=== PATIENT | male | born 1995 | race Caucasian/White ===

== ENCOUNTER 2020-03-27 08:08 | Emergency (ER) | payer SELFPAY ==
[2020-03-27] MEDS ORDERED: BENADRYL 25MG C25 MG PO (12:43)
[2020-03-27] MEDS ORDERED: PREDNISONE50 MG PO (12:43)
== END 2020-03-27 12:58 | disposition home or self-care (01) ==
LOC: ER1 08:08
DX: L27.1 Localized skin eruption due to drugs and medicaments taken internally (principal); R22.0 Localized swelling, mass and lump, head; K14.8 Other diseases of tongue; T36.8X5A Adverse effect of other systemic antibiotics, initial encounter; T36.1X5A Adverse effect of cephalosporins and other beta-lactam antibiotics, initial encounter
CPT/HCPCS: 96365; 96375; 99282; J1200; J2930